=== PATIENT | female | born 1965 | race Caucasian/White ===

== ENCOUNTER 2019-01-27 05:49 | Day surgery (SDC) | payer BC ==
[2019-01-27] MEDS ORDERED: DEXAMETHASONE 4 MG/ML 5 ML INJ (07:00)
[2019-01-27] MEDS ORDERED: CEFAZOLIN 1 GM INJ (07:00)
[2019-01-27] MEDS ORDERED: ONDANSETRON 4 MG INJ (07:00)
[2019-01-27] MEDS ORDERED: LABETALOL HCL 20MG INJ (07:00)
[2019-01-27] MEDS ORDERED: BUPIVACAINE 0.5%/EPI (SDV) 30 ML INJ (07:07)
[2019-01-27] MEDS ORDERED: LIDOCAINE 1% (MPF) 30 ML INJ (07:07)
[2019-01-27] MEDS ORDERED: MIDAZOLAM 1 MG/ML 2 ML INJ (07:10)
[2019-01-27] MEDS ORDERED: LIDOCAINE 2% (SDV) 5 ML INJ (07:10)
[2019-01-27] MEDS ORDERED: PROPOFOL 20 ML (07:10)
[2019-01-27] MEDS ORDERED: FENTAnyl 50 MCG/ML VIAL ×2 (07:10→08:59)
[2019-01-27] MEDS ORDERED: METOCLOPRAMIDE 10 MG INJ (07:11)
[2019-01-27] MEDS ORDERED: LEVALBUTEROL (NEB) 1.25 MG/0.5 ML AMP HHN (07:30)
[2019-01-27] MEDS ORDERED: morphine 2 MG INJ IV (07:30)
[2019-01-27] MEDS ORDERED: HYDROmorphONE 1 MG/5 ML IV SYRINGE IV ×3 (07:30)
[2019-01-27] MEDS ORDERED: FENTAnyl 50 MCG/ML VIAL IV ×2 (07:30)
[2019-01-27] MEDS ORDERED: MEPERIDINE 25 MG INJ IV (07:30)
[2019-01-27] MEDS ORDERED: hydrALAzine 20 MG INJ IV (07:30)
[2019-01-27] MEDS ORDERED: DIPHENHYDRAMINE 50 MG INJ IV (07:30)
[2019-01-27] MEDS ORDERED: ONDANSETRON 4 MG INJ IV (07:30)
[2019-01-27] MEDS ORDERED: MIDAZOLAM 1 MG/ML 2 ML INJ IV (07:30)
[2019-01-27] MEDS ORDERED: LABETALOL HCL 20MG INJ IV (07:30)
[2019-01-27] MEDS ORDERED: HALOPERIDOL 5 MG INJ IV (07:30)
[2019-01-27] MEDS ORDERED: ROPIVACAINE 0.5 % 30 ML VIAL (07:32)
[2019-01-27] MEDS ORDERED: PROPOFOL 100 ML (07:45)
[2019-01-27] MEDS: BUPIVACAINE 0.5% (SDV) 30 ML INJ (08:36)
[2019-01-27] MEDS: POLYMYXIN/BACITRACIN 1L IRRIG (08:36)
[2019-01-27] MEDS: NEOMYC/POLYMYX/BACIT 30 GM OINT (10:02)
[2019-01-27] MEDS: ONDANSETRON 4 MG INJ IV (10:50)
[2019-01-27] MEDS: KETOROLAC 30 MG INJ IV (10:50)
[2019-01-27] MEDS: traMADol 50 MG TAB PO (10:54)
== END 2019-01-27 11:57 | disposition home or self-care (01) ==
LOC: SDS 05:49
DX: M20.21 Hallux rigidus, right foot (principal); I10 Essential (primary) hypertension
CPT/HCPCS: 28298; 73630; 82306